=== PATIENT | male | born 1930 | race Hispanic/Latino ===

== ENCOUNTER 2017-08-08 13:38 | Emergency (ER) | payer OTHER ==
--- NOTE | 2017-08-08 14:45 | RAD REPORT ---
EXAM DESCRIPTION: CT - Head C Spine Mpr Wo Con - 08/08/2017 2:12 pm CLINICAL HISTORY: Head and neck injury status post fall. Head and neck pain COMPARISON: None. TECHNIQUE: Computed axial tomography of the head and cervical spine was obtained. Sagittal and coronal reconstruction was performed. All CT scans are performed using dose optimization technique as appropriate and may include automated exposure control or mA/KV adjustment according to patient size. FINDINGS: An intracranial bleed is not seen. The ventricles are normal in caliber. An extra-axial fl uid collection is not noted. Moderate low-density areas within periventricular, deep and subcortical white matter likely represent ischemic changes secondary to small vessel disease. Fluid within the vi sualized sinuses and mastoids is not seen A cervical fracture is not visualized. No dislocation is noted. Mild anterior subluxation of C4 on C5 is present. This probably is chronic given that adjacent soft tissue swelling is not seen. 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 IMPRESSION: No acute intracranial abnormality is seen. A cervical fracture is not visualized. If the patient continues to have symptoms to suggest intracra nial /spinal cord/ligamentous pathology then MRI would be recommended
--- NOTE | 2017-08-08 14:46 | RAD REPORT ---
EXAM DESCRIPTION: RAD - Humerus Right - 08/08/2017 2:29 pm CLINICAL HISTORY: Right arm pain status post fall FINDINGS: No fracture is seen. The bones are osteoporotic
[2017-08-08] MEDS ORDERED: HYDROCODONE/APAP 5/325 MG TAB ONE (15:38)
--- NOTE | 2017-08-08 16:25 | ER ---
Nurse's Notes [facility] Name: Ronal Arita Age: 87 yrs Sex: Male : 1930 Arrival Date: 08/08/2017 Time: 13:39 Bed 25 Private MD: Diagnosis: Strain of muscle, fascia and tendon of other parts of biceps, right arm;Other slipping, tripping and stumbling and falls;Superficial injury of head Presentation: 08/08 13:39 Presenting complaint: EMS states: tripped and fell onto the ground today. c/o right sv arm/shoulder pain and jesika knee pain. Denies head injury. Transition of care: patient was not received from another setting of care. Onset of symptoms was August 08, 2017. Care prior to arrival: None. 13:39 Method Of Arrival: EMS: [facility] sv 13:39 Acuity: MELANI 3 sv 13:40 Risk Assessment: Do you want to hurt yourself or someone else? Patient reports no kr2 desire to harm self or others. Initial Sepsis Screen: Does the patient meet any 2 criteria? No. Patient's initial sepsis screen is negative. Does the patient have a suspected source of infection? No. Patient's initial sepsis screen is negative. 13:40 Mechanism of Injury: Fall from standing position. Trauma event details: Injury occurred kr2 in the [facility], Injury occurred: at home. Injury occurred: August 08, 2017. Trauma Activation: Not Applicable Physician: ED Physician; Name: ; Notified At: ; Arrived At: Physician: General Surgeon; Name: ; Notified At: ; Arrived At: Physician: Radiology; Name: ; Notified At: ; Arrived At: Physician: Respiratory; Name: ; Notified At: ; Arrived At: Physician: Lab; Name: ; Notified At: ; Arrived At: Historical: - Allergies: 13:41 No Known Allergies; sv - Home Meds: 13:41 Plavix Oral [Active]; losartan oral oral [Active]; Metoprolol Tartrate Oral [Active]; sv Lasix Oral [Active]; Potassium Chloride Oral [Active]; - PMHx: 13:41 Hypertension; sv - Immunization history:: Adult Immunizations unknown. - Social history:: Smoking status: Patient/guardian denies using tobacco. - Immunization history: Last tetanus immunization: - up to date. - Ebola Screening: : No symptoms or risks identified at this time. Screenin:18 Abuse screen: Denies threats or abuse. Denies injuries from another. Nutritional kr2 screening: No deficits noted. Tuberculosis screening: No symptoms or risk factors identified. Fall Risk None identified. Primary Survey: 13:40 A: Airway: patent. Breathing/Chest: Respiratory pattern: regular, Respiratory effort: kr2 spontaneous, unlabored. Circulation: Cardiac rhythm: sinus rhythm. Disability Alert. 15:30 Reassessment Airway Airway Patent Breathing/Chest Respiratory pattern Regular kr2 Respiratory effort Spontaneous Unlabored Breath sounds Clear Circulation Heart rhythm Sinus rhythm Disability Alert. Assessment: 13:40 General: Appears in no apparent distress. comfortable, well groomed, well developed, kr2 well nourished, Behavior is calm, cooperative, appropriate for age. Pain: Complains of pain in right arm Pain does not radiate. Pain currently is 6 out of 10 on a pain scale. Quality of pain is described as aching, tender, Is continuous, Alleviated by rest, Aggravated by increased activity, repositioning. Neuro: Level of Consciousness is awake, alert, obeys commands, Oriented to person, place, situation. Cardiovascular: Capillary refill < 3 seconds in bilateral fingers Patient's skin is warm and dry. Respiratory: Airway is patent Respiratory effort is even, unlabored, Respiratory pattern is regular, symmetrical. GI: Abdomen is flat, non-distended. : No signs and/or symptoms were reported regarding the genitourinary system. EENT: Oral mucosa is moist. Derm: Skin is healthy with good turgor, Skin is pink, warm \T\ dry. Musculoskeletal: Circulation, motion, and sensation intact. Injury Description: Laceration sustained to left arm is clean, superficial, 0.5 to 2.5 cm long, was sustained 30-60 minutes ago. no active bleeding noted at this time. Vital Signs: 13:49 BP 182 / 88; Pulse 79; Resp 17; Temp 97.9(O); Pulse Ox 95% on R/A; Weight 70.31 kg; kr2 Height 5 ft. 6 in. (167.64 cm); Pain 6/10; 15:30 BP 148 / 70; Pulse 76; Resp 16; Pulse Ox 99% on R/A; kr2 16:53 BP 154 / 74; Pulse 80; Resp 19; Pulse Ox 96% on R/A; kr2 13:49 Body Mass Index 25.02 (70.31 kg, 167.64 cm) kr2 [place] Coma Score: 13:49 Eye Response: spontaneous(4). Verbal Response: oriented(5). Motor Response: obeys kr2 commands(6). Total: 15. Trauma Score (Adult): 13:49 Eye Response: spontaneous(1); Verbal Response: oriented(1); Motor Response: obeys kr2 commands(2); Systolic BP: > 89 mm Hg(4); Respiratory Rate: 10 to 29 per min(4); Angela Score: 15; Trauma Score: 12 ED Course: 13:39 Patient arrived in ED. sv 13:40 Triage completed. sv 13:40 Patient has correct armband on for positive identification. Bed in low position. Call kr2 light in reach. Side rails up X2. Adult w/ patient. Pulse ox on. NIBP on. Door closed. Warm blanket given. Head of bed elevated. 13:40 Patient maintains SpO2 saturation greater than 95% on room air. Thermoregulation: warm kr2 blanket given to patient. 13:41 Arm band placed on right wrist. sv 13:48 Jim Miller NP is PHCP. pm1 13:48 Levi Saha MD is Attending Physician. pm1 13:49 Marilin Jama RN is Primary Nurse. kr2 14:[address] via stretcher. cw1 14:08 CT completed. Patient moved back from CT. cw1 14:12 CT Head C Spine In Process Unspecified. EDMS 14:29 Humerus Right XRAY In Process Unspecified. EDMS 15:30 Cleaned of incontinence. Linen changed. kr2 16:49 No provider procedures requiring assistance completed. Patient did not have IV access kr2 during this emergency room visit. 16:54 Cleaned of incontinence. kr2 Administered Medications: 15:42 Drug: [place] 5 mg-325 mg 1 tabs Route: PO; kr2 16:50 Follow up: Response: No adverse reaction; Pain is decreased kr2 Intake: 16:51 PO: 120ml (Water); Total: 120ml. kr2 Outcome: 16:24 Discharge ordered by . pm1 16:51 Discharged to home via wheelchair, with family. kr2 16:51 Condition: good 16:51 Discharge instructions given to patient, family, Instructed on discharge instructions, follow up and referral plans. medication usage, Demonstrated understanding of instructions, follow-up care, medications, Prescriptions given X 1. 16:52 Patient's length of stay in the Emergency Department was greater than 2 hours. kr2 Patient's length of stay was extended due to staffing issues within the emergency department. 16:55 Patient left the ED. kr2 Signatures: Dispatcher [employer] EDAdriana Alfred RN RN Luz Davis cw1 Jim Miller NP [facility] pm1 Marilin Jama RN RN kr2 Corrections: (The following items were deleted from the chart) 16:50 15:18 A: Airway: patent, kr2 kr2 16:50 15:18 Breathing/Chest: Respiratory pattern: regular, Respiratory effort: spontaneous, kr2 unlabored, kr2 16:50 15:18 Circulation: Cardiac rhythm: sinus rhythm kr2 kr2 16:50 15:18 Disability Alert kr2 kr2
--- NOTE | 2017-08-08 16:26 | EDPHYS ---
Physician Documentation [facility] Name: Ronal Arita Age: 87 yrs Sex: Male : 1930 Arrival Date: 08/08/2017 Time: 13:39 Bed 25 Private MD: ED Physician Levi Saha HPI: 08/08 14:00 This 87 yrs old Male presents to ER via EMS with complaints of Fall Injury, pm1 Right Arm Pain. 14:00 Details of fall: The patient fell from an upright position, while standing. Onset: The pm1 symptoms/episode began/occurred 1 hour(s) ago. Associated injuries: The patient sustained right bicep. Severity of symptoms: in the emergency department the symptoms are unchanged. The patient has not experienced similar symptoms in the past. The patient has not recently seen a physician. Patient was standing up from his couch and leaning onto his walker. The walker slide forward as he was standing up and he fell forward with the walker. Patient complaining of pain to right bicep. Patient hit his forehead on the ground. No LOC, vomiting, headache, neck pain.. Historical: - Allergies: 13:41 No Known Allergies; sv - Home Meds: 13:41 Plavix Oral [Active]; losartan oral oral [Active]; Metoprolol Tartrate Oral [Active]; sv Lasix Oral [Active]; Potassium Chloride Oral [Active]; - PMHx: 13:41 Hypertension; sv - Immunization history:: Adult Immunizations unknown. - Social history:: Smoking status: Patient/guardian denies using tobacco. - Immunization history: Last tetanus immunization: - up to date. - Ebola Screening: : No symptoms or risks identified at this time. ROS: 14:00 Constitutional: Negative for fever, chills, and weight loss, Eyes: Negative for injury, pm1 pain, redness, and discharge, ENT: Negative for injury, pain, and discharge, Neck: Negative for injury, pain, and swelling, Cardiovascular: Negative for chest pain, palpitations, and edema, Respiratory: Negative for shortness of breath, cough, wheezing, and pleuritic chest pain, Abdomen/GI: Negative for abdominal pain, nausea, vomiting, diarrhea, and constipation, Back: Negative for injury and pain, : Negative for injury, bleeding, discharge, and swelling. 14:00 Skin: Negative for injury, rash, and discoloration, Neuro: Negative for headache, weakness, numbness, tingling, and seizure. 14:00 MS/extremity: Positive for pain, of the right bicep, Negative for decreased range of motion, deformity. Exam: 14:00 Constitutional: This is a well developed, well nourished patient who is awake, alert, pm1 and in no acute distress. Head/Face: Normocephalic, atraumatic. Eyes: Pupils equal round and reactive to light, extra-ocular motions intact. Lids and lashes normal. Conjunctiva and sclera are non-icteric and not injected. Cornea within normal limits. Periorbital areas with no swelling, redness, or edema. ENT: Nares patent. No nasal discharge, no septal abnormalities noted. Tympanic membranes are normal and external auditory canals are clear. Oropharynx with no redness, swelling, or masses, exudates, or evidence of obstruction, uvula midline. Mucous membranes moist. Neck: Trachea midline, no thyromegaly or masses palpated, and no cervical lymphadenopathy. Supple, full range of motion without nuchal rigidity, or vertebral point tenderness. No Meningismus. Chest/axilla: Normal chest wall appearance and motion. Nontender with no deformity. No lesions are appreciated. Cardiovascular: Regular rate and rhythm with a normal S1 and S2. No gallops, murmurs, or rubs. Normal PMI, no JVD. No pulse deficits. Respiratory: Lungs have equal breath sounds bilaterally, clear to auscultation and percussion. No rales, rhonchi or wheezes noted. No increased work of breathing, no retractions or nasal flaring. Abdomen/GI: Soft, non-tender, with normal bowel sounds. No distension or tympany. No guarding or rebound. No evidence of tenderness throughout. Back: No spinal tenderness. No costovertebral tenderness. Full range of motion. Skin: Warm, dry with normal turgor. Normal color with no rashes, no lesions, and no evidence of cellulitis. MS/ Extremity: Pulses equal, no cyanosis. Neurovascular intact. Full, normal range of motion. Tenderness to right bicep. No tenderness to right triceps right shoulder and right elbow 14:00 Neuro: Orientation: is normal, Mentation: is normal, appropriate for stated age, Motor: moves all fours, Sensation: is normal, no obvious gross deficits. Vital Signs: 13:49 BP 182 / 88; Pulse 79; Resp 17; Temp 97.9(O); Pulse Ox 95% on R/A; Weight 70.31 kg; kr2 Height 5 ft. 6 in. (167.64 cm); Pain 6/10; 15:30 BP 148 / 70; Pulse 76; Resp 16; Pulse Ox 99% on R/A; kr2 16:53 BP 154 / 74; Pulse 80; Resp 19; Pulse Ox 96% on R/A; kr2 13:49 Body Mass Index 25.02 (70.31 kg, 167.64 cm) kr2 [place] Coma Score: 13:49 Eye Response: spontaneous(4). Verbal Response: oriented(5). Motor Response: obeys kr2 commands(6). Total: 15. Trauma Score (Adult): 13:49 Eye Response: spontaneous(1); Verbal Response: oriented(1); Motor Response: obeys kr2 commands(2); Systolic BP: > 89 mm Hg(4); Respiratory Rate: 10 to 29 per min(4); [place] Score: 15; Trauma Score: 12 MDM: 13:57 Patient medically screened. pm1 16:20 ED course: Patient's pain improved and he feels ready to go home. pm1 16:20 ED course: Daughter reports that she checked the walker and the brakes were not working pm1 properly. Recommended replacement. 16:23 Data reviewed: vital signs. Data interpreted: Pulse oximetry: on room air is 95 %. pm1 Interpretation: normal. Counseling: I had a detailed discussion with the patient and/or guardian regarding: the historical points, exam findings, and any diagnostic results supporting the discharge/admit diagnosis, radiology results, the need for outpatient follow up, to return to the emergency department if symptoms worsen or persist or if there are any questions or concerns that arise at home. 08/08 13:58 Order name: CT Head C Spine; Complete Time: 14:55 pm1 08/08 13:58 Order name: Humerus Right XRAY; Complete Time: 14:55 pm1 Administered Medications: 15:42 Drug: [place] 5 mg-325 mg 1 tabs Route: PO; kr2 16:50 Follow up: Response: No adverse reaction; Pain is decreased kr2 Disposition: 19:00 Co-signature as Attending Physician, Levi Saha MD. Disposition: 08/08/17 16:24 Discharged to Home. Impression: Strain of muscle, fascia and tendon of other parts of biceps, right arm, Other slipping, tripping and stumbling and falls, Superficial injury of head. - Condition is Stable. - Discharge Instructions: Head Injury, Adult, Fall Prevention and Home Safety, Muscle Strain. - Prescriptions for Tylenol- Codeine #3 300-30 mg Oral Tablet - take 1 tablet by ORAL route every 6 hours As needed; 15 tablet. - Medication Reconciliation Form, Thank You Letter, Prescription Opioid Use form. - Follow up: Emergency Department; When: As needed; Reason: Worsening of condition. Follow up: Private Physician; When: 2 - 3 days; Reason: Recheck today's complaints, Continuance of care, Re-evaluation by your physician. - Problem is new. - Symptoms have improved. Signatures: Dispatcher [employer] EDMS Adriana Howell RN RN Jim Miller NP [employer] pm1 Levi Saha MD MD Marilin Jama RN RN kr2 Corrections: (The following items were deleted from the chart) 16:55 16:24 08/08/2017 16:24 Discharged to Home. Impression: Strain of muscle, fascia and kr2 tendon of other parts of biceps, right arm; Other slipping, tripping and stumbling and falls; Superficial injury of head. Condition is Stable. Forms are Medication Reconciliation Form, Thank You Letter, Antibiotic Education, Prescription Opioid Use. Follow up: Emergency Department; When: As needed; Reason: Worsening of condition. Follow up: Private Physician; When: 2 - 3 days; Reason: Recheck today's complaints, Continuance of care, Re-evaluation by your physician. Problem is new. Symptoms have improved. pm1
== END 2017-08-08 16:55 | disposition home or self-care (01) ==
LOC: ER 13:38
DX: S46.211A Strain of muscle, fascia and tendon of other parts of biceps, right arm, initial encounter (principal); S00.90XA Unspecified superficial injury of unspecified part of head, initial encounter; W01.0XXA Fall on same level from slipping, tripping and stumbling without subsequent striking against object, initial encounter; Y93.89 Activity, other specified; Y92.9 Unspecified place or not applicable; Z79.01 Long term (current) use of anticoagulants; I10 Essential (primary) hypertension
CPT/HCPCS: 70450; 72125; 99285